=== PATIENT | male | born 1980 | race African-American/Black ===

== ENCOUNTER 2016-06-14 20:13 | Inpatient (IN) | payer MEDICARE ==
[~2016-06-14] VITALS: Ht 172.7 cm; Wt 108.0 kg
[~2016-06-14 20:13] MED LIST: ABILIFY2 MG; ABILIFY2 MG PO; ASPIRIN81 MG PO; BRILINTA90 MG PO; CELEXA20 MG PO; CLARITIN 10 MG10 MG PO; COREG12.5 MG PO; GLUCOPHAGE500 MG PO; HUMALOG 30100 UNITS/ SC; HUMALOG MIX 75/23 ML; HUMALOG MIX 75/23 ML SC; HUMULIN R100 U/ML SC; HYDRALAZINE HCL25 MG PO; IBUPROFEN800 MG PO; LEVEMIR100 U/M1; LEVEMIR100 U/M1 SC; LIPITOR20 MG PO; METOPROLOL TART50 MG PO; NORVASC10 MG PO; OXYCONTIN10 MG PO; PLAVIX75 MG PO; PRAVACHOL20 MG PO; PRINIVIL20 MG PO; PROTONIX40 MG PO; TRICOR145 MG PO; VALIUM5 MG; VALIUM5 MG PO; XANAX2 MG PO; ZESTORETIC 20/21 TAB; ZESTORETIC 20/21 TAB PO
[2016-06-14 20:48] LABS: BASOPHILS 0.1 % (0.0-2.0); EOSINOPHILS 0 % (0-7); HEMATOCRIT 45.6 % (42.0-54.0); HEMOGLOBIN 15.8 g/dL (13.5-17.5); IMMATURE GRANULOCYTES 0.4 % (0-5); LYMPHOCYTES 11.4 % (15-50); MCH 25.6 pg (26.0-34.0); MCHC 34.6 g/dL (31.0-37.0); MCV 73.8 fL (80.0-100.0); MEAN PLATELET VOLUME 9.5 fL (7.4-10.4); MONOCYTES 6.6 % (2-11); NEUTROPHILS 81.5 % (40-80); PLATELET COUNT 237 10x3/uL (130-400); RBC 6.18 10x6/uL (4.20-6.10); RDW 13.5 % (11.5-14.5); WBC 7.3 10x3/uL (4.8-10.8)
[2016-06-14 21:24] LABS: ALBUMIN 3.6 g/dL (3.4-5.0); ALKALINE PHOSPHATASE 139 U/L (46-116); ALT (SGPT) 46 U/L (10-68); CALC OSMOLALITY 276 mosm/kg (275-300); CALCIUM 8.8 mg/dL (8.5-10.1); CARBON DIOXIDE 25.6 mmol/L (21.0-32.0); CHLORIDE - SERUM 97 mmol/L (98-107); CKMB 0.5 U/L (0.0-3.6); CREATINE KINASE 383 UL (21-232); CREATININE - SERUM 1.1 mg/dL (0.6-1.3); GLUCOSE 265 mg/dL (74-106); POTASSIUM - SERUM 3.4 mmol/L (3.5-5.1); PROTEIN - SERUM 7.9 g/dL (6.4-8.2); SODIUM 135 mmol/L (136-145); TROPONIN-I < 0.017 ng/mL (0.000-0.060); UREA NITROGEN 8 mg/dL (7-18); eGFR NON AFRICAN AMERICAN 81 mL/min (90-120)
[2016-06-15] VITALS (7 sets, daily range): BP systolic 139–162; BP diastolic 85–108; Ht 172.7 cm; Wt 108.0 kg
[2016-06-15 01:34] LABS: APPEARANCE CLEAR (CLEAR); BILIRUBIN NEGATIVE (NEGATIVE); COLOR YELLOW (YELLOW); GLUCOSE 500 mg/dL (NEGATIVE); KETONE NEGATIVE (NEGATIVE); LEUKOCYTE ESTERASE NEGATIVE (NEGATIVE); NITRITE NEGATIVE (NEGATIVE); PROTEIN 1+ mg/dL (NEGATIVE); UROBILINOGEN NORMAL (NORMAL)
[2016-06-15 02:07] LABS: UDS - AMPHET NEGATIVE QUAL (NEGATIVE); UDS - BARB NEGATIVE QUAL (NEGATIVE); UDS - BENZO NEGATIVE QUAL (NEGATIVE); UDS - COCAINE NEGATIVE QUAL (NEGATIVE); UDS - METH NEGATIVE QUAL (NEGATIVE); UDS - OPIATE NEGATIVE QUAL (NEGATIVE); UDS - PCP NEGATIVE QUAL (NEGATIVE); UDS - THC NEGATIVE QUAL (NEGATIVE)
--- NOTE | 2016-06-15 03:40 | NUR ---
RECEIVED PT TO FLOOR FROM ER VIA STRETCHER. VITAL SIGNS STABLE. BP MEDS GIVEN IN ER FOR HIGH BP - BP STARTING TO COME DOWN. REVIEWED HOME MEDS AND HISTORY. ASSESSMENT COMPLETE PER FLOW-SHEET. WILL CONTINUE TO MONITOR.
[2016-06-15] MEDS ORDERED: ZANTAC150 MG PO (03:49)
--- NOTE | 2016-06-15 07:56 | NUR ---
AWAKE AND ALERT. ORIENTED X3. NO C/O AT THIS TIME. LUNGS ARE CLEAR BILATERALLY, REPORTS OCCASSIONAL DRY COUGH. SKIN IS INTACT WITHOUT REDNESS. SL TO RIGHT HAND PATENT WITHOUT REDNESS AT INSERTION SITE. DENIES NEEDS. TEMP 99.5 AT THIS TIME.
--- NOTE | 2016-06-15 10:00 | NUR ---
RESTING QUIETLY IN BED. TELEMETRY APPLIED PER ORDERS.
--- NOTE | 2016-06-15 12:00 | NUR ---
FSBS 210. GIVEN 4 UNITS REGULAR INSULIN SUBQ PER SS. LUNCH SERVED IN ROOM.
[2016-06-15 12:51] LABS: HEMOGLOBIN A1C 11.2 % (4.8-6.0)
--- NOTE | 2016-06-15 15:06 | NUR ---
REQUESTED AND GIVEN 2MG XANAX PO FOR C/O ANXIETY. WILL MONITOR.
--- NOTE | 2016-06-15 16:00 | NUR ---
UP TO SHOWER WITH SET UP ASSISTANCE ONLLY. TEMP 102 AT THIS TIME. WILL GIVE TYLENOL AFTER SHOWER.
--- NOTE | 2016-06-15 16:56 | NUR ---
Patient Name: CHRISTIANO GONGORA Admission Status: ER Admission Date: 06-15-2016 : 1980 Admission Diagnosis:OTHER CHEST PAIN Attending: KELLY Current LOS: 1 Anticipated DC Date: 06-15-2016 Planned Disposition: Home Primary Insurance: MEDICARE A & B Discharge Planning Comments: CM met with patient who states he plans to discharge home where he resides alone in a single story home with 3 steps. He states he has a Caregiver supplied by "[facility]". Patient's PCP is Dr. Velez ([place]) [phone]. His transportation home will be his friend "Wander Alvarado" ([phone]). The patient states his home environment is safe to return to. Patient may benefit from Home Health at discharge. CM to follow and assist as needed with discharge planning/needs. Training Lead: Brisa Clancy Is the patient Alert and Oriented? Yes 0 * How many steps to enter\\exit or inside your home? 3 0 * PCP Dr. Leonard () [phone] 0 * Pharmacy [facility] ([facility] [phone] 0 * Preadmission Environment Home Alone 0 * ADLs Partial Dependent 0 * Partial ADLs (Assistance needed) Bathing Medication Management 0 * Equipment CPAP Glucometer Nebulizer 0 * List name and contact numbers for known caregivers / representatives who currently or will assist patient after discharge: Wander Alvarado (friend) [phone] or [phone] or [phone] Leanna Henry (sister) [phone] 0 * Community resources currently utilized Private Duty Care 0 * Please name any agencies selected above. "[employer]" caregivers 0 * Additional services required to return to the preadmission environment? Yes 0 * Can the patient safely return to the preadmission environment? Yes 0 * Has this patient been hospitalized within the prior 30 days at any hospital? No 0 Grand Total: 0
--- NOTE | 2016-06-15 18:49 | NUR ---
FSBS 28O. GIVEN 10 UNITS REGULAR SUBQ PER SS. SUPPER SERVED IN ROOM. NOT EATING AT THIS TIME. TRAY LEFT IN ROOM. TEMP AT THIS TIME. 102.5
[2016-06-16] VITALS: BP 156/103
[2016-06-16 04:00] VITALS: BP 139/98
[2016-06-16 07:25] LABS: BASOPHILS 0.2 % (0.0-2.0); EOSINOPHILS 0 % (0-7); HEMATOCRIT 41.9 % (42.0-54.0); HEMOGLOBIN 14.1 g/dL (13.5-17.5); LYMPHOCYTES 18.9 % (15-50); MCH 24.9 pg (26.0-34.0); MCHC 33.7 g/dL (31.0-37.0); MCV 73.9 fL (80.0-100.0); MEAN PLATELET VOLUME 10.1 fL (7.4-10.4); MONOCYTES 14.1 % (2-11); NEUTROPHILS 66.8 % (40-80); RBC 5.67 10x6/uL (4.20-6.10); RDW 14.1 % (11.5-14.5)
--- NOTE | 2016-06-16 07:30 | NUR ---
RECIEVED PT DURING WALKING ROUNDS. PT RESTING IN BED WITH NO COMPLAINTS OF PAIN OR DISCOMFORT AT THIS TIME. ASSESSMENT DONE PER FLOWSHEET. BED IN LOW POSITION AND CALL LIGHT WITHIN REACH. WILL CONTINUE TO MONITOR.
[2016-06-16 07:32] LABS: PLATELET COUNT 187 10x3/uL (130-400); WBC 4.5 10x3/uL (4.8-10.8)
[2016-06-16 07:53] LABS: ALBUMIN 2.8 g/dL (3.4-5.0); ANION GAP 8.4 mmol/L (8-16); BILIRUBIN - TOTAL 1.1 mg/dL (0.2-1.3); CALCIUM 8.5 mg/dL (8.5-10.1); CARBON DIOXIDE 29.9 mmol/L (21.0-32.0); CHOL - HDL RATIO 4.3 ratio (2.3-4.9); CREATININE - SERUM 1.2 mg/dL (0.6-1.3); LDL-HDL RATIO 2.2 ratio (1.5-3.5); MAGNESIUM - SERUM 1.7 mg/dL (1.8-2.4); PHOSPHOROUS 3.5 mg/dL (2.5-4.9); POTASSIUM - SERUM 3.3 mmol/L (3.5-5.1)
[2016-06-16 09:32] VITALS: BP 152/90
--- NOTE | 2016-06-16 12:16 | NUR ---
PT STATED HE WAS HAVING AN "ANXIETY ATTACK". HE WAS RESTLESS IN THE BED BUT OTHERWISE CALM. ADMINISTERED MEDICATION PER ORDER. BED IN LOW POSITION AND CALL LIGHT WITHIN REACH. WILL CONTINUE TO MONITOR.
--- NOTE | 2016-06-16 12:46 | NUR ---
QUIET IN ROOM AT PRESENT RESP EVEN AND UNLABORED AT PRESENT DENIES ANY OTHER NEEDS AT THIS TIME.
[2016-06-16 13:46] VITALS: BP 138/86
[2016-06-16 19:18] VITALS: BP 136/70
[2016-06-16 20:00] VITALS: BP 140/88
[2016-06-17] VITALS: BP 155/105
--- NOTE | 2016-06-17 00:07 | NUR ---
PT LAYING IN BED NO DISTRESS OBSERVED CALL LIGHT IN REACH SRX2 PT AMBULATORY TO BATH ROOM FROM BED WITH NO ASSISTANCE WITH AMBULATION PT REQUEST HEP TO SIT UP AND TO ADJUST PILLOW AND BLANKETS STATING " I CANT DO IT" ASSITED PT WITH NEEDS CALL LIGHT LOW AND LOKCED SRX2 CALL LIGHT IN REACH WILL MONITOR
[2016-06-17 04:00] VITALS: BP 152/109
[2016-06-17 06:59] LABS: BASOPHILS 0.3 % (0.0-2.0); EOSINOPHILS 0 % (0-7); HEMATOCRIT 43.1 % (42.0-54.0); HEMOGLOBIN 14.6 g/dL (13.5-17.5); IMMATURE GRANULOCYTES 0.3 % (0-5); MCH 25.1 pg (26.0-34.0); MCHC 33.9 g/dL (31.0-37.0); MCV 74.2 fL (80.0-100.0); MEAN PLATELET VOLUME 9.7 fL (7.4-10.4); MONOCYTES 13.6 % (2-11); NEUTROPHILS 42.8 % (40-80); PLATELET COUNT 183 10x3/uL (130-400); RBC 5.81 10x6/uL (4.20-6.10); RDW 14.1 % (11.5-14.5); WBC 3.8 10x3/uL (4.8-10.8)
[2016-06-17 07:38] LABS: ALBUMIN 2.9 g/dL (3.4-5.0); ANION GAP 12.2 mmol/L (8-16); BILIRUBIN - TOTAL 0.77 mg/dL (0.2-1.3); CALCIUM 8.9 mg/dL (8.5-10.1); CARBON DIOXIDE 29.2 mmol/L (21.0-32.0); CREATININE - SERUM 1.2 mg/dL (0.6-1.3); MAGNESIUM - SERUM 1.9 mg/dL (1.8-2.4); POTASSIUM - SERUM 3.4 mmol/L (3.5-5.1); PROTEIN - SERUM 7.6 g/dL (6.4-8.2); THYROID STIMULATING HORMONE 1.09 uIU/mL (0.36-3.74)
[2016-06-17 07:41] LABS: PHOSPHOROUS 4.5 mg/dL (2.5-4.9)
[2016-06-17 09:00] VITALS: BP 154/95
--- NOTE | 2016-06-17 10:00 | NUR ---
PATIENT STATED HE HAS SEIZURES. SET UP SEIZURE PRECAUTIONS. NO SIGNS OF SEIZURE ACTIVITY AT THIS TIME. BED IN LOWEST POSITION, CALL LIGHT IN REACH. BED ALARM ON. ENCOURAGED PATIENT NOT TO GET UP WITHOUT ASSIST FROM STAFF. PATIENT VERBALIZED UNDERSTANDING AND DENIES QUESTIONS. APPLIED SCDS TO BILATEARL LEGS.
[2016-06-17 16:34] VITALS: BP 122/66
--- NOTE | 2016-06-17 21:57 | NUR ---
PATIENT RESTING IN BED. REPORTS FREQUENT LOOSE STOOLS. SCHEDULED MEDS GIVEN. REFUSES MIRALAX RT LOOSE STOOLS. ASSESSMENT COMPLETED. DENIES ANY NEEDS AT THIS TIME. BED LOW. CALL LIGHT IN REACH.
[2016-06-17 23:13] VITALS: BP 122/86
--- NOTE | 2016-06-18 03:00 | NUR ---
PT IN BED WITH NO DISTRESS. RESPIRATIONS EVEN AND UNLABORED. SIDE RAILS X 2. BED LOW. CALL LIGHT IN REACH.
[2016-06-18 04:00] VITALS: BP 135/94
[2016-06-18 05:35] LABS: BASOPHILS 0.6 % (0.0-2.0); EOSINOPHILS 0 % (0-7); HEMATOCRIT 44.5 % (42.0-54.0); HEMOGLOBIN 14.8 g/dL (13.5-17.5); IMMATURE GRANULOCYTES 0.3 % (0-5); LYMPHOCYTES 52.1 % (15-50); MCH 24.8 pg (26.0-34.0); MCHC 33.3 g/dL (31.0-37.0); MCV 74.7 fL (80.0-100.0); MEAN PLATELET VOLUME 10.1 fL (7.4-10.4); MONOCYTES 10.8 % (2-11); NEUTROPHILS 36.2 % (40-80); PLATELET COUNT 236 10x3/uL (130-400); RBC 5.96 10x6/uL (4.20-6.10); WBC 3.6 10x3/uL (4.8-10.8)
[2016-06-18 05:40] LABS: ALBUMIN 2.9 g/dL (3.4-5.0); ANION GAP 11.8 mmol/L (8-16); BILIRUBIN - TOTAL 0.59 mg/dL (0.2-1.3); CARBON DIOXIDE 31.5 mmol/L (21.0-32.0); CREATININE - SERUM 1.2 mg/dL (0.6-1.3); MAGNESIUM - SERUM 1.9 mg/dL (1.8-2.4); PHOSPHOROUS 5.5 mg/dL (2.5-4.9); POTASSIUM - SERUM 3.3 mmol/L (3.5-5.1); PROTEIN - SERUM 7.6 g/dL (6.4-8.2)
--- NOTE | 2016-06-18 08:26 | NUR ---
PT. AOX4 PT SITTING IN BED RESP EVEN AND NONLABORED PT. DENIES NEEDS AT THIS TIME. SKIN JHA WARM AND DRY WITH GOOD EDEMA IV TO RIGHT HAND PATENT AND INTACT. IV TO RIGHT FOREARM PATENT AND INTACT BED AT LOWEST SETTING AND CALL LIGHT WITHIN REACH
[2016-06-18 08:37] VITALS: BP 140/96
--- NOTE | 2016-06-18 10:08 | EC ---
PATIENT:CHRISTIANO GONGORA II DATE OF SERVICE: 06/15/16 SEX: M MEDICAL RECORD: [id number] DATE OF : [birth year] LOCATION:[facility] AGE OF PATIENT: 36 ADMISSION DATE: 06/15/16 REFERRING PHYSICIAN: INTERPRETING PHYSICIAN: DAFNE ALATORRE MD ECHOCARDIOGRAM REPORT ECHO CHARGES 4 ECHO COMPLETE CLINICAL DIAGNOSIS: FEVER OF UNKNOWN ORIGIN/ PALPITATIONSS ECHOCARDIOGRAPHIC MEASUREMENTS (adult normal given) AC root (d.<3.7cm) 3.2 LV Septum d (<1.2 cm> 1.4 Valve Excursion 2.4 LV Septum (systole) 2.2 Left Atria (s.<4.0cm> 4.0 LVPW d(<1.2cm) 1.3 RV (d.<2.3cm) 2.2 LVPW (sytole) 2.0 LV diastole(<5.6CM) 4.5 MV E-F(>70mm/sec) LV systole 2.7 LVOT Diameter 2.1 MV exc.(>10mm) Est.ejection fraction (50-75%) Pericardial Effusion N DOPPLER: LVIT A 95.0 E 115 LA RVSP 19.0 LVOT 116 AOP1/2T Asc. Ao 178 RVOT 82.0 RA PA 115 AV Gradient Peak 13.0 AV Mean 6.4 AV Area 2.3 MV Gradient Peak 6.7 MV Mean 2.7 MV Area COMMENTS: Spoilage Worker: Hemant BOWERSOE Warrant Server:1 Dr. Alatorre TAPE# PACS DATE OF SERVICE: 06/15/2016 Echocardiogram FINDINGS: 1. Left ventricular chamber size is within normal limits. Left ventricular systolic function is normal. Overall ejection fraction estimated at 60%. 2. Left atrium, right atrium, and right ventricular chamber sizes are within normal limits. 3. Valvular structures have normal structure and motion. ECHOCARDIOGRAM REPORT [id number] CHRISTIANO GONGORA II 4. Doppler interrogation only reveals trace mitral regurgitation. No other valvular insufficiency or stenosis. 5. No evidence of pericardial effusion or left ventricular thrombus. TRANSINT:[id number] Voice Confirmation ID: [id number] DOCUMENT ID: [id number] DAFNE ALATORRE MD at 1008 CC: [id number] DICTATION DATE: 06/15/16 1321 SHOEMAKING CUTTER: 06/15/16 1506 ADM IN [facility] [address] [place] [address]
[2016-06-18 12:12] VITALS: BP 126/86
--- NOTE | 2016-06-18 13:54 | NUR ---
CM REASSESSMENT NOTE: PATIENT STATED HE HAS LIVED ON HIS OWN SINCE 23. PATIENT HAS ITS [facility] ASSISTANCE 7 DAYS A WEEK 3 HOURS A DAY-HIS FREELANCE DISPLAYER IS MS. AVALOS. THE SERVICE PROVIDES CLEANING, COOKING, PERSONAL CARE. PATIENTS TRANSPORATION IS THE [employer] BUS OR HIS FRIENDS. PATIENT STATED HE ALSO HAS A SERVICE DOG NAMED STEFANIE. PATIENT STATED HE DID NOT NEED HOME HEALTH THAT ITS [facility] IS ALL HE NEEDED. PATIENTS FRIEND BAKARI BLAKE WILL DRIVE HIM HOME TODAY ([phone]).
[2016-06-18] MEDS ORDERED: TAMIFLU75 MG PO (14:01)
[2016-06-18] MEDS ORDERED: LEVAQUIN750 MG PO (14:01)
--- NOTE | 2016-06-18 16:50 | NUR ---
REMOVED IV FROM WITH CATHETER INTACT FROM BACK OF RIGHT HAND. IV REMOVED FROM RIGHT FOREARM WITH CATHETER INTACT PT. SHOWERED AND DISCHARGED AT THIS TIME. PT. AMBULATED OUT WITH CAREGIVER AT THIS TIME.
== END 2016-06-18 16:53 | disposition home or self-care (01) | DRG 864 ==
LOC: D.ER 20:13 → D.MS 06-15 02:01
PROVIDERS: Emergency Medicine; ADMIT Family Medicine Adult Medicine
DX: R50.9 Fever, unspecified (principal); R07.89 Other chest pain; E87.6 Hypokalemia; E83.42 Hypomagnesemia; E11.65 Type 2 diabetes mellitus with hyperglycemia; J45.909 Unspecified asthma, uncomplicated; G47.33 Obstructive sleep apnea (adult) (pediatric); I10 Essential (primary) hypertension; E78.5 Hyperlipidemia, unspecified; I25.10 Atherosclerotic heart disease of native coronary artery without angina pectoris; Z86.73 Personal history of transient ischemic attack (TIA), and cerebral infarction without residual deficits

== ENCOUNTER 2017-10-23 18:29 | Inpatient (IN) | payer MEDICARE, MEDICAID ==
[~2017-10-23] VITALS: Ht 172.7 cm; Wt 100.0 kg
--- NOTE | ~2017-10-23 | EC ---
PATIENT:CHRISTIANO GONGORA II DATE OF SERVICE: 10/23/17 SEX: M MEDICAL RECORD: [id number] DATE OF : [birth year] LOCATION:[facility] AGE OF PATIENT: 37 ADMISSION DATE: 10/25/17 REFERRING PHYSICIAN: INTERPRETING PHYSICIAN: SARY OVALLE MD ECHOCARDIOGRAM REPORT ECHO CHARGES 4 ECHO COMPLETE Date: 10/24 CLINICAL DIAGNOSIS: LEFT ARM NUMB, CAD ECHOCARDIOGRAPHIC MEASUREMENTS (adult normal given) AC root (d.<3.7cm) 3.1 cm LV Septum d (<1.2 cm> 2.2 cm Valve Excursion 1.0 cm LV Septum (systole) 2.0 cm Left Atria (s.<4.0cm> 3.0 cm LVPW d(<1.2cm) 1.4 cm RV (d.<2.3cm) 2.4 cm LVPW (sytole) 1.7 cm LV diastole(<5.6CM) 4.4 cm MV E-F(>70mm/sec) cm LV systole 3.4 cm LVOT Diameter 1.8 cm MV exc.(>10mm) cm Est.ejection fraction (50-75%) % DOPPLER: LVIT cm/sec A 53 cm/sec E 95 cm/sec LA cm/sec RVSP 14.3 mmHg LVOT 102 cm/sec AOP1/2T m/s Asc. Ao 122 cm/sec RVOT 59 cm/sec RA cm/sec PA 87 cm/sec AV Gradient Peak 6.0 mmHg AV Mean 3.16 mmHg AV Area 1.9 cm MV Gradient Peak 3.81 mmHg MV Mean 1.32 mmHg MV Area cm COMMENTS: International Account Executive: Cotton Header: Bobbi Ovalle TAPE# PACS Pericardial Effusion N DATE OF SERVICE: PROCEDURE: Transthoracic echocardiogram. FINDINGS: 1. Left ventricle has moderate to severe concentric left ventricular hypertrophy with an ejection fraction of 65%. There are no regional wall motion abnormalities. 2. The left atrium is normal. 3. The aortic valve is normal. ECHOCARDIOGRAM REPORT [id number] CHRISTIANO GONGORA II 4. The mitral valve has trace mitral regurgitation. 5. The tricuspid valve has normal structure and function. 6. The right ventricle has normal structure and function. 7. The right atrium is grossly normal. 8. The pulmonic valve is normal. CONCLUSIONS: The patient has evidence of hypertensive heart disease and with left ventricular hypertrophy, otherwise normal echocardiogram. TRANSINT:[id number] Voice Confirmation ID: [id number] DOCUMENT ID: [id number] SARY OVALLE MD at 1127 CC: [id number] DICTATION DATE: 10/25/17 1131 TUBE COATER: 10/25/17 1208 DIS IN 10/26/17 [place] [id number] [place] [id number]
[~2017-10-23 18:29] MED LIST changes: +LEVAQUIN750 MG PO; +OXYCODONE HCL10 MG PO; -OXYCONTIN10 MG PO; +TAMIFLU75 MG PO; +XANAX1 MG PO; -XANAX2 MG PO; +ZANTAC150 MG PO
[2017-10-23] MEDS ORDERED: TOPAMAX200 MG PO (18:40)
[2017-10-23] MEDS ORDERED: BUSPAR 15 MG TA15 MG PO (18:41)
[2017-10-23] MEDS ORDERED: NOVOLOG100 U/M1 SC (18:43)
[2017-10-23 19:00] VITALS: BP 150/96
[2017-10-23 19:27] LABS: BASOPHILS 0.2 % (0-2); EOSINOPHILS 0 % (0-7); HEMATOCRIT 41.1 % (42.0-54.0); IMMATURE GRANULOCYTES 0.2 % (0-5); LYMPHOCYTES 46.7 % (15-50); MCH 25.5 pg (26.0-34.0); MCHC 34.1 g/dL (31.0-37.0); MEAN PLATELET VOLUME 9.6 fL (7.4-10.4); MONOCYTES 12.3 % (2-11); NEUTROPHILS 40.6 % (40-80); PLATELET COUNT 225 10x3/uL (130-400); RBC 5.48 10x6/uL (4.20-6.10); RDW 15.4 % (11.5-14.5); WBC 4.1 10x3/uL (4.8-10.8)
[2017-10-23 19:57] LABS: ALBUMIN 3.9 g/dL (3.4-5.0); ALKALINE PHOSPHATASE 99 U/L (46-116); ALT (SGPT) 26 U/L (10-68); BILIRUBIN - TOTAL 0.35 mg/dL (0.2-1.3); CALC OSMOLALITY 287 mosm/kg (275-300); CALCIUM 8.9 mg/dL (8.5-10.1); CHLORIDE - SERUM 107 mmol/L (98-107); CREATININE - SERUM 1.2 mg/dL (0.6-1.3); GLUCOSE 122 mg/dL (74-106); POTASSIUM - SERUM 3.5 mmol/L (3.5-5.1); PROTEIN - SERUM 8.2 g/dL (6.4-8.2); SODIUM 143 mmol/L (136-145); UREA NITROGEN 18 mg/dL (7-18); eGFR NON AFRICAN AMERICAN 73 mL/min (90-120)
[2017-10-23 20:00] VITALS: BP 144/96
[2017-10-23 20:01] LABS: APPEARANCE CLEAR (CLEAR); BILIRUBIN NEGATIVE (NEGATIVE); COLOR YELLOW (YELLOW); GLUCOSE NEGATIVE (NEGATIVE); KETONE NEGATIVE (NEGATIVE); NITRITE NEGATIVE (NEGATIVE); PROTEIN NEGATIVE (NEGATIVE); SPECIFIC GRAVITY 1.015 (1.005-1.020); UROBILINOGEN NORMAL (NORMAL)
[2017-10-23 20:07] LABS: CKMB 1.3 U/L (0.0-3.6); CREATINE KINASE 179 UL (21-232); MAGNESIUM - SERUM 1.6 mg/dL (1.8-2.4)
[2017-10-23 20:08] LABS: TROPONIN-I < 0.017 ng/mL (0.000-0.060)
[2017-10-23 20:12] LABS: UDS - AMPHET NEGATIVE QUAL (NEGATIVE); UDS - BARB NEGATIVE QUAL (NEGATIVE); UDS - BENZO NEGATIVE QUAL (NEGATIVE); UDS - COCAINE NEGATIVE QUAL (NEGATIVE); UDS - OPIATE NEGATIVE QUAL (NEGATIVE); UDS - PCP NEGATIVE QUAL (NEGATIVE); UDS - THC NEGATIVE QUAL (NEGATIVE)
[2017-10-23 20:55] VITALS: BP 145/93
[2017-10-23 22:03] VITALS: BP 130/83
[2017-10-23 23:15] VITALS: BP 151/99; BMI 33.5
[2017-10-23 23:54] VITALS: BP 151/99
[2017-10-24 04:00] VITALS: BP 157/97
[2017-10-24 05:21] LABS: HEMATOCRIT 40.6 % (42.0-54.0); HEMOGLOBIN 13.7 g/dL (13.5-17.5); MCH 25.3 pg (26.0-34.0); MCHC 33.7 g/dL (31.0-37.0); MEAN PLATELET VOLUME 10.2 fL (7.4-10.4); PLATELET COUNT 228 10x3/uL (130-400); RBC 5.41 10x6/uL (4.20-6.10); RDW 15.4 % (11.5-14.5)
[2017-10-24 05:47] LABS: CALC OSMOLALITY 286 mosm/kg (275-300); CALCIUM 8.7 mg/dL (8.5-10.1); CARBON DIOXIDE 24.6 mmol/L (21.0-32.0); CHLORIDE - SERUM 107 mmol/L (98-107); CKMB 0.9 U/L (0.0-3.6); CREATINE KINASE 135 UL (21-232); CREATININE - SERUM 1.2 mg/dL (0.6-1.3); GLUCOSE 133 mg/dL (74-106); MAGNESIUM - SERUM 1.6 mg/dL (1.8-2.4); POTASSIUM - SERUM 3.4 mmol/L (3.5-5.1); SODIUM 142 mmol/L (136-145); UREA NITROGEN 17 mg/dL (7-18); eGFR NON AFRICAN AMERICAN 73 mL/min (90-120)
[2017-10-24 06:03] LABS: TROPONIN-I < 0.017 ng/mL (0.000-0.060)
[2017-10-24 06:17] LABS: LYMPHOCYTES 47 % (15-50); MONOCYTES 10 % (2-11); NEUTROPHILS 41 % (40-80); PLATELET ESTIMATE NORMAL
[2017-10-24 08:11] VITALS: BP 150/106
[2017-10-24 09:16] LABS: CREATINE KINASE 134 UL (21-232)
[2017-10-24 09:19] LABS: TROPONIN-I < 0.017 ng/mL (0.000-0.060)
[2017-10-24 12:46] VITALS: Ht 172.7 cm; Wt 100.0 kg
[2017-10-24 15:25] VITALS: BP 132/93
[2017-10-24] MEDS ORDERED: BROVANA15 MCG/2 M INH (19:59)
[2017-10-24 20:00] VITALS: BP 149/94
[2017-10-24] MEDS ORDERED: IPRAT-ALBUT 0.5-3 ML UPD (20:00)
[2017-10-24] MEDS ORDERED: KLONOPIN1 MG PO (23:00)
[2017-10-24] MEDS ORDERED: OXYCODONE HCL E20 MG PO (23:01)
[2017-10-24] MEDS ORDERED: NITROQUICK0.4 MG SL (23:10)
[2017-10-25] VITALS: BP 148/96
[2017-10-25 04:00] VITALS: BP 140/98
[2017-10-25 05:10] LABS: BASOPHILS 0.6 % (0-2); EOSINOPHILS 0 % (0-7); HEMATOCRIT 42.3 % (42.0-54.0); HEMOGLOBIN 14.2 g/dL (13.5-17.5); LYMPHOCYTES 60.6 % (15-50); MCH 25.1 pg (26.0-34.0); MCHC 33.6 g/dL (31.0-37.0); MCV 74.9 fL (80.0-100.0); MEAN PLATELET VOLUME 9.7 fL (7.4-10.4); MONOCYTES 12.1 % (2-11); NEUTROPHILS 26.7 % (40-80); PLATELET COUNT 210 10x3/uL (130-400); RBC 5.65 10x6/uL (4.20-6.10); RDW 15.3 % (11.5-14.5); WBC 3.3 10x3/uL (4.8-10.8)
[2017-10-25 05:26] LABS: CALC OSMOLALITY 281 mosm/kg (275-300); CALCIUM 8.1 mg/dL (8.5-10.1); CARBON DIOXIDE 25.9 mmol/L (21.0-32.0); CHLORIDE - SERUM 106 mmol/L (98-107); CREATININE - SERUM 1.1 mg/dL (0.6-1.3); GLUCOSE 109 mg/dL (74-106); MAGNESIUM - SERUM 1.9 mg/dL (1.8-2.4); POTASSIUM - SERUM 3.5 mmol/L (3.5-5.1); SODIUM 141 mmol/L (136-145); eGFR NON AFRICAN AMERICAN 81 mL/min (90-120)
[2017-10-25 05:27] LABS: UREA NITROGEN 12 mg/dL (7-18)
[2017-10-25 09:35] VITALS: BP 156/110
[2017-10-25 16:07] VITALS: BP 139/88
[2017-10-25 19:40] VITALS: BP 136/89
[2017-10-25 23:21] VITALS: BP 121/82
[2017-10-26 03:57] VITALS: BP 127/80
[2017-10-26 06:14] LABS: HEMATOCRIT 44.1 % (42.0-54.0); HEMOGLOBIN 14.8 g/dL (13.5-17.5); MCH 25.1 pg (26.0-34.0); MCHC 33.6 g/dL (31.0-37.0); MCV 74.7 fL (80.0-100.0); MEAN PLATELET VOLUME 9.9 fL (7.4-10.4); PLATELET COUNT 231 10x3/uL (130-400); RDW 15.3 % (11.5-14.5)
[2017-10-26 06:30] LABS: ANION GAP 9.7 mmol/L (8-16); CALCIUM 8.8 mg/dL (8.5-10.1); CARBON DIOXIDE 31.2 mmol/L (21.0-32.0); CREATININE - SERUM 1.2 mg/dL (0.6-1.3); POTASSIUM - SERUM 3.9 mmol/L (3.5-5.1)
[2017-10-26 07:19] LABS: LYMPHOCYTES 62 % (15-50); MICROCYTOSIS OCC; MONOCYTES 12 % (2-11); NEUTROPHILS 24 % (40-80); PLATELET ESTIMATE NORMAL
[2017-10-26 08:28] VITALS: BP 130/86
[2017-10-26 12:36] VITALS: BP 139/86
== END 2017-10-26 17:29 | disposition home or self-care (01) | DRG 69 ==
LOC: D.ER 18:29 → OBSVTIME 20:55 → D.EDHOLD 20:55 → D.MS 20:55
PROVIDERS: Family Medicine; Internal Medicine Nephrology
DX: G45.9 Transient cerebral ischemic attack, unspecified (principal); I16.0 Hypertensive urgency; I65.23 Occlusion and stenosis of bilateral carotid arteries; I25.119 Atherosclerotic heart disease of native coronary artery with unspecified angina pectoris; E83.42 Hypomagnesemia; G47.33 Obstructive sleep apnea (adult) (pediatric); F32.9 Major depressive disorder, single episode, unspecified; F41.9 Anxiety disorder, unspecified; R20.0 Anesthesia of skin; E78.5 Hyperlipidemia, unspecified; E11.9 Type 2 diabetes mellitus without complications

== ENCOUNTER 2018-02-12 22:15 | Emergency (ER) | payer MEDICARE, MEDICAID ==
[~2018-02-12] VITALS: Ht 172.7 cm; Wt 102.3 kg
[~2018-02-12 22:15] MED LIST changes: +BROVANA15 MCG/2 M INH; +BUSPAR 15 MG TA15 MG PO; +IPRAT-ALBUT 0.5-3 ML UPD; +KLONOPIN1 MG PO; +NITROQUICK0.4 MG SL; +NOVOLOG100 U/M1 SC; +OXYCODONE HCL E20 MG PO; +TOPAMAX200 MG PO
[2018-02-12 22:20] VITALS: Ht 172.7 cm; Wt 102.3 kg
[2018-02-12] MEDS ORDERED: METOPROLOL TART25 MG PO (22:22)
[2018-02-13 00:59] VITALS: BP 146/97
== END 2018-02-13 01:00 | disposition home or self-care (01) ==
LOC: D.ER 22:15
DX: T40.7X5A Adverse effect of cannabis (derivatives), initial encounter (principal); Y92.89 Other specified places as the place of occurrence of the external cause; I10 Essential (primary) hypertension; R68.2 Dry mouth, unspecified; G40.909 Epilepsy, unspecified, not intractable, without status epilepticus; E11.9 Type 2 diabetes mellitus without complications

== ENCOUNTER 2018-02-24 19:42 | Emergency (ER) | payer MEDICARE, MEDICAID ==
[~2018-02-24] VITALS: Ht 172.7 cm; Wt 104.5 kg
[~2018-02-24 19:42] MED LIST changes: +METOPROLOL TART25 MG PO
[2018-02-24 19:43] VITALS: Ht 172.7 cm; Wt 104.5 kg
[2018-02-24] MEDS ORDERED: ZOLOFT50 MG PO (19:53)
[2018-02-24 20:12] LABS: BASOPHILS 0.3 % (0-2); EOSINOPHILS 0 % (0-7); HEMATOCRIT 41.1 % (42.0-54.0); HEMOGLOBIN 14.1 g/dL (13.5-17.5); LYMPHOCYTES 43.6 % (15-50); MCH 25.8 pg (26.0-34.0); MCHC 34.3 g/dL (31.0-37.0); MCV 75.1 fL (80.0-100.0); MEAN PLATELET VOLUME 9.7 fL (7.4-10.4); MONOCYTES 10.2 % (2-11); NEUTROPHILS 45.9 % (40-80); PLATELET COUNT 204 10x3/uL (130-400); RBC 5.47 10x6/uL (4.20-6.10); RDW 14.8 % (11.5-14.5); WBC 3.7 10x3/uL (4.8-10.8)
[2018-02-24 20:26] LABS: ALBUMIN 3.7 g/dL (3.4-5.0); ANION GAP 12.5 mmol/L (8-16); BILIRUBIN - TOTAL 0.43 mg/dL (0.2-1.3); CALCIUM 8.3 mg/dL (8.5-10.1); CARBON DIOXIDE 25.9 mmol/L (21.0-32.0); CREATININE - SERUM 1.4 mg/dL (0.6-1.3); POTASSIUM - SERUM 3.4 mmol/L (3.5-5.1); PROTEIN - SERUM 7.6 g/dL (6.4-8.2)
[2018-02-24 21:24] LABS: APPEARANCE CLEAR (CLEAR); BILIRUBIN NEGATIVE (NEGATIVE); COLOR YELLOW (YELLOW); GLUCOSE 100 mg/dL (NEGATIVE); KETONE NEGATIVE (NEGATIVE); NITRITE NEGATIVE (NEGATIVE); PROTEIN NEGATIVE (NEGATIVE); UROBILINOGEN NORMAL (NORMAL)
[2018-02-24 21:34] LABS: UDS - AMPHET NEGATIVE QUAL (NEGATIVE); UDS - BARB NEGATIVE QUAL (NEGATIVE); UDS - BENZO NEGATIVE QUAL (NEGATIVE); UDS - COCAINE NEGATIVE QUAL (NEGATIVE); UDS - OPIATE NEGATIVE QUAL (NEGATIVE); UDS - PCP NEGATIVE QUAL (NEGATIVE); UDS - THC NEGATIVE QUAL (NEGATIVE)
[2018-02-24] MEDS ORDERED: LEVAQUIN750 MG PO (22:30)
[2018-02-25 00:16] VITALS: BP 146/88
== END 2018-02-25 00:16 | disposition home or self-care (01) ==
LOC: D.ER 19:42
PROVIDERS: Family Medicine
DX: J18.9 Pneumonia, unspecified organism (principal); M54.5 Low back pain; G40.909 Epilepsy, unspecified, not intractable, without status epilepticus; Z87.820 Personal history of traumatic brain injury; E11.9 Type 2 diabetes mellitus without complications; I10 Essential (primary) hypertension

== ENCOUNTER 2018-09-16 19:05 | Emergency (ER) | payer MEDICARE, MEDICAID ==
[~2018-09-16 19:05] MED LIST changes: +ZOLOFT50 MG PO
[2018-09-16 19:09] VITALS: BMI 35.9
[2018-09-16 19:43] LABS: BASOPHILS 0.3 % (0-2); EOSINOPHILS 0 % (0-7); HEMATOCRIT 43.5 % (42.0-54.0); HEMOGLOBIN 15.1 g/dL (13.5-17.5); IMMATURE GRANULOCYTES 0.2 % (0-5); LYMPHOCYTES 38.3 % (15-50); MCH 25.8 pg (26.0-34.0); MCHC 34.7 g/dL (31.0-37.0); MCV 74.4 fL (80.0-100.0); MEAN PLATELET VOLUME 10.3 fL (7.4-10.4); MONOCYTES 9.3 % (2-11); NEUTROPHILS 51.9 % (40-80); PLATELET COUNT 219 10x3/uL (130-400); RBC 5.85 10x6/uL (4.20-6.10); RDW 13.9 % (11.5-14.5); WBC 6.6 10x3/uL (4.8-10.8)
[2018-09-16 19:52] LABS: APTT 32.2 SECONDS (22.8-39.4); INR 1.08 (0.85-1.17); PROTIME 13.5 SECONDS (11.6-15.0)
[2018-09-16 20:10] LABS: ALBUMIN 3.7 g/dL (3.4-5.0); ALKALINE PHOSPHATASE 178 U/L (46-116); ALT (SGPT) 54 U/L (10-68); BILIRUBIN - TOTAL 0.55 mg/dL (0.2-1.3); CALCIUM 8.5 mg/dL (8.5-10.1); CARBON DIOXIDE 24.1 mmol/L (21.0-32.0); CHLORIDE - SERUM 97 mmol/L (98-107); CKMB 1.4 U/L (0.0-3.6); CREATINE KINASE 299 UL (21-232); CREATININE - SERUM 1.4 mg/dL (0.6-1.3); MAGNESIUM - SERUM 1.7 mg/dL (1.8-2.4); POTASSIUM - SERUM 3.7 mmol/L (3.5-5.1); PROTEIN - SERUM 8.1 g/dL (6.4-8.2); SODIUM 133 mmol/L (136-145); UREA NITROGEN 10 mg/dL (7-18); eGFR NON AFRICAN AMERICAN 61 mL/min (90-120)
[2018-09-16 20:13] LABS: CALC OSMOLALITY 286 mosm/kg (275-300); TROPONIN-I < 0.017 ng/mL (0.000-0.060)
[2018-09-16 20:16] LABS: GLUCOSE 496 mg/dL (74-106)
[2018-09-17 00:57] VITALS: BP 144/67
== END 2018-09-16 23:05 | disposition home or self-care (01) ==
LOC: D.ER 19:05
PROVIDERS: Family Medicine
DX: E11.65 Type 2 diabetes mellitus with hyperglycemia (principal); Z79.4 Long term (current) use of insulin; I10 Essential (primary) hypertension; R53.1 Weakness

== ENCOUNTER → 2018-09-17 08:31 | Outpatient (CLI) | payer MEDICARE, MEDICAID ==
[2018-09-16 19:09] VITALS: BMI 35.9
--- NOTE | 2018-09-19 09:40 | ST ---
PATIENT:CHRISTIANO GONGORA II MEDICAL RECORD: [id number] SEX: M LOCATION:[facility] ORDER #: ADMISSION DATE: 09/17/18 AGE OF PATIENT: 38 REFERRING PHYSICIAN: INTERPRETING PHYSICIAN: DAFNE APPIAH MD DATE OF SERVICE: 09/17/2018 PROCEDURE: Nuclear stress test. INDICATIONS: Angina, coronary artery disease, shortness of breath, dyspnea on exertion, hypertension, and hyperlipidemia. He was exercised on standard Lexiscan protocol with 31 mCi of sestamibi injected at peak stress, 11 mCi were used previously for rest images. FINDINGS: Gated SPECT reveals preserved ejection fraction at 54% with good wall motion and thickening and brightening throughout all segments. SPECT imaging Cardiolite was used as myocardial perfusion agent. There is homogeneous uptake throughout all segments at rest and stress with no evidence of inducible ischemia or previous infarction. OVERALL IMPRESSION: 1. This is a normal nuclear stress test with no evidence of inducible ischemia or previous infarction. 2. Gated SPECT reveals a preserved ejection fraction at 54%. In this patient with ongoing symptomatology, the current scan does not suggest the presence of hemodynamically significant coronary artery disease. Evaluate noncardiac etiology of chest pain. TRANSINT:[id number] Voice Confirmation ID: [id number] DOCUMENT ID: [id number] DAFNE APPIAH MD at 0940 CC: [id number] DICTATION DATE: 09/17/18 1612 PACKAGE LINE RELIEF OPERATOR: 09/18/18 1014 DEP CLI 09/17/18 [place] [id number] [place] [address]
== END | disposition home or self-care (01) ==
LOC: D.HCCARDIO 08:31
PROVIDERS: ATTEND Internal Medicine Interventional Cardiology
DX: I25.119 Atherosclerotic heart disease of native coronary artery with unspecified angina pectoris (principal)

== ENCOUNTER 2018-12-23 12:23 | Emergency (ER) | payer MEDICARE, MEDICAID ==
[~2018-12-23] VITALS: Ht 172.7 cm; Wt 104.5 kg
[2018-12-23 12:26] VITALS: Ht 172.7 cm; Wt 104.5 kg
[2018-12-23 14:22] LABS: BASOPHILS 0.4 % (0-2); EOSINOPHILS 0 % (0-7); HEMATOCRIT 42.7 % (42.0-54.0); HEMOGLOBIN 14.6 g/dL (13.5-17.5); IMMATURE GRANULOCYTES 0.2 % (0-5); LYMPHOCYTES 44.2 % (15-50); MCH 25.4 pg (26.0-34.0); MCHC 34.2 g/dL (31.0-37.0); MCV 74.4 fL (80.0-100.0); MEAN PLATELET VOLUME 10.1 fL (7.4-10.4); MONOCYTES 6.9 % (2-11); NEUTROPHILS 48.3 % (40-80); PLATELET COUNT 254 10x3/uL (130-400); RBC 5.74 10x6/uL (4.20-6.10); WBC 5.4 10x3/uL (4.8-10.8)
[2018-12-23 14:25] LABS: ALBUMIN 3.6 g/dL (3.4-5.0); ANION GAP 12.3 mmol/L (8-16); BILIRUBIN - TOTAL 0.29 mg/dL (0.2-1.3); CALCIUM 8.7 mg/dL (8.5-10.1); CARBON DIOXIDE 28.3 mmol/L (21.0-32.0); CREATININE - SERUM 1.5 mg/dL (0.6-1.3); POTASSIUM - SERUM 3.6 mmol/L (3.5-5.1); PROTEIN - SERUM 7.8 g/dL (6.4-8.2)
[2018-12-23 15:01] VITALS: BP 149/98
== END 2018-12-23 15:02 | disposition home or self-care (01) ==
LOC: D.ER 12:23
PROVIDERS: Family Medicine
DX: R41.3 Other amnesia (principal); E11.9 Type 2 diabetes mellitus without complications; I10 Essential (primary) hypertension; K21.9 Gastro-esophageal reflux disease without esophagitis; S09.90XA Unspecified injury of head, initial encounter

== ENCOUNTER → 2019-06-18 09:29 | Outpatient (CLI) | payer MEDICARE, MEDICAID ==
[2019-05-15 08:51] VITALS: BMI 35.2
== END | disposition home or self-care (01) ==
LOC: D.CT 06-15 09:30
PROVIDERS: ATTEND Internal Medicine Interventional Cardiology
DX: I65.29 Occlusion and stenosis of unspecified carotid artery (principal); R20.2 Paresthesia of skin

== ENCOUNTER 2019-08-28 21:45 | Observation (INO) | payer MEDICARE, MEDICAID ==
[~2019-08-28] VITALS: Ht 175.3 cm; Wt 107.8 kg
[2019-08-28 22:03] LABS: BASOPHILS 0.5 % (0-2); EOSINOPHILS 0 % (0-7); HEMOGLOBIN 14.5 g/dL (13.5-17.5); IMMATURE GRANULOCYTES 0.3 % (0-5); LYMPHOCYTES 48.8 % (15-50); MCH 25.2 pg (26.0-34.0); MCV 76.4 fL (80.0-100.0); MEAN PLATELET VOLUME 9.8 fL (7.4-10.4); MONOCYTES 9.2 % (2-11); NEUTROPHILS 41.2 % (40-80); PLATELET COUNT 251 10x3/uL (130-400); RBC 5.76 10x6/uL (4.20-6.10); RDW 15.3 % (11.5-14.5); WBC 6.5 10x3/uL (4.8-10.8)
[2019-08-28 22:11] LABS: APTT 30.6 SECONDS (22.8-39.4); CALC OSMOLALITY 275 mosm/kg (275-300); CALCIUM 8.8 mg/dL (8.5-10.1); CARBON DIOXIDE 25.3 mmol/L (21.0-32.0); CHLORIDE - SERUM 99 mmol/L (98-107); CREATININE - SERUM 1.2 mg/dL (0.6-1.3); INR 0.96 (0.85-1.17); POTASSIUM - SERUM 3.1 mmol/L (3.5-5.1); PROTIME 12.7 SECONDS (11.6-15.0); SODIUM 133 mmol/L (136-145); UREA NITROGEN 18 mg/dL (7-18); eGFR NON AFRICAN AMERICAN 72 mL/min (90-120)
[2019-08-28 22:12] LABS: GLUCOSE 246 mg/dL (74-106)
[2019-08-28 22:28] LABS: ALBUMIN 3.9 g/dL (3.4-5.0); ALKALINE PHOSPHATASE 149 U/L (30-120); ALT (SGPT) 45 U/L (10-68); BILIRUBIN - TOTAL 0.35 mg/dL (0.2-1.3); CKMB 1.2 U/L (0.0-3.6); CREATINE KINASE 258 UL (21-232); MAGNESIUM - SERUM 1.5 mg/dL (1.8-2.4); PROTEIN - SERUM 8.3 g/dL (6.4-8.2); TROPONIN-I < 0.017 ng/mL (0.000-0.060)
[2019-08-28 23:00] VITALS: BP 138/88
--- NOTE | 2019-08-28 23:55 | NUR ---
ATTEMPTED TO CALL REPORT, [facility] STATES NURSE NOT AVAILABLE TO TAKE PT AT THIS TIME.
[2019-08-29 03:44] LABS: HEMATOCRIT 43.7 % (42.0-54.0); HEMOGLOBIN 14.2 g/dL (13.5-17.5); LYMPHOCYTES 47.7 % (15-50); MCH 24.9 pg (26.0-34.0); MCHC 32.5 g/dL (31.0-37.0); MCV 76.7 fL (80.0-100.0); MEAN PLATELET VOLUME 10.1 fL (7.4-10.4); NEUTROPHILS 43.5 % (40-80); PLATELET COUNT 264 10x3/uL (130-400); RDW 15.6 % (11.5-14.5); WBC 6.2 10x3/uL (4.8-10.8)
[2019-08-29 03:56] LABS: ALBUMIN 3.5 g/dL (3.4-5.0); ALKALINE PHOSPHATASE 172 U/L (30-120); ALT (SGPT) 49 U/L (10-68); BILIRUBIN - TOTAL 0.51 mg/dL (0.2-1.3); CALC OSMOLALITY 280 mosm/kg (275-300); CALCIUM 7.9 mg/dL (8.5-10.1); CARBON DIOXIDE 26.4 mmol/L (21.0-32.0); CHLORIDE - SERUM 101 mmol/L (98-107); CREATINE KINASE 228 UL (21-232); CREATININE - SERUM 1.3 mg/dL (0.6-1.3); GLUCOSE 265 mg/dL (74-106); POTASSIUM - SERUM 3.4 mmol/L (3.5-5.1); SODIUM 135 mmol/L (136-145); UREA NITROGEN 19 mg/dL (7-18); eGFR NON AFRICAN AMERICAN 66 mL/min (90-120)
--- NOTE | 2019-08-29 03:56 | NUR ---
PATIENT LAYING IN BED IN LOW FOWLERS EYES CLOSED BUT EASILY AROUSED. PATIENT STATES NO NEEDS AT THIS TIME. NO PAIN AT THIS TIME. CALL LIGHT WITHIN REACH AND BED IN LOWEST LOCKED POSITION.
[2019-08-29 03:58] LABS: PROTEIN - SERUM 7.6 g/dL (6.4-8.2); TROPONIN-I < 0.017 ng/mL (0.000-0.060)
[2019-08-29 04:45] VITALS: BP 144/86; BMI 35.2
--- NOTE | 2019-08-29 04:58 | NUR ---
PATIENT UNABLE TO DISCUSS MEDICATIONS. STATED HE DOSE NOT KNOW ALL OF THEM BY NAME. ASKS IF WE CAN CALL PHARM IN THE AM TO FIGURE IT OUT
[2019-08-29 05:17] VITALS: BP 143/93
[2019-08-29 09:49] VITALS: BP 124/97
--- NOTE | 2019-08-29 10:06 | NUR ---
PT C/O OF CHEST PAIN. ONE NITRO GIVEN AT THIS TIME. WILL REASSESS PT AGAIN IN 3MIN. PT DENIES ANY OTHER NEEDS AT THIS TIME. MONITOR SHOWING SR WITH RATE OF 68. LT AC INFUSING NS AT 75CC/HR. CALL LIT IN REACH, BEDSIDE RAILS X2, NAD NOTED, WILL CONTINUE TO MONITOR.
[2019-08-29 10:16] LABS: CKMB 0.9 U/L (0.0-3.6); CREATINE KINASE 184 UL (21-232); TROPONIN-I < 0.017 ng/mL (0.000-0.060)
--- NOTE | 2019-08-29 11:15 | NUR ---
BLOOD SUGAR OF 163, NO COVERAGE GIVEN DUE TO PT BEING NPO.
[2019-08-29 11:48] VITALS: Ht 175.3 cm; Wt 107.8 kg
[2019-08-29 13:50] VITALS: BP 147/96
--- NOTE | 2019-08-29 14:27 | NUR ---
MEDS GIVEN ORDERED ALSO INFORMED PT OF NEED FOR URINE SAMPLE. PT DENIES ANY NEEDS AT THIS TIME. CALL LIGHT IN REACH, NAD NOTED, WILL CONTINUE TO MONITOR.
[2019-08-29 15:16] LABS: BILIRUBIN NEGATIVE (NEGATIVE); GLUCOSE 250 mg/dL (NEGATIVE); KETONE NEGATIVE (NEGATIVE); NITRITE NEGATIVE (NEGATIVE); SPECIFIC GRAVITY 1.015 (1.005-1.020); UROBILINOGEN NORMAL (NORMAL)
[2019-08-29 15:24] LABS: UDS - AMPHET NEGATIVE QUAL (NEGATIVE); UDS - BARB NEGATIVE QUAL (NEGATIVE); UDS - BENZO NEGATIVE QUAL (NEGATIVE); UDS - COCAINE NEGATIVE QUAL (NEGATIVE); UDS - OPIATE NEGATIVE QUAL (NEGATIVE); UDS - PCP NEGATIVE QUAL (NEGATIVE); UDS - THC NEGATIVE QUAL (NEGATIVE)
[2019-08-29 16:27] LABS: CREATINE KINASE 171 UL (21-232)
[2019-08-29 16:28] LABS: TROPONIN-I < 0.017 ng/mL (0.000-0.060)
--- NOTE | 2019-08-29 16:47 | NUR ---
BLOOD SUGAR OF 315, 8UNITS GIVEN PER S/S.
--- NOTE | 2019-08-29 17:01 | NUR ---
PROVIDED VERBAL AND WRITTEN DISCHARGE TEACHING TO PT, WHO VERBALIZED UNDERSTANDING REGARING TEACHING. D/C LT FA IV WITH CATHETER TIP INTACT. HEART MONITOR REMOVED AND TAKEN TO STOVE INSTALLER. PT IS TRYING TO GET A RIDE AND WILL LET NURSE OR CHILDCARE DIRECTOR KNOW WHEN HE HAS A RIDE AND IS READY FOR WHEELCHAIR.
--- NOTE | 2019-08-29 17:58 | NUR ---
WHEELED PT TO ER ENTRANCE WITH ALL BELONGINGS, NAD NOTED.
--- NOTE | 2019-08-30 09:56 | EC ---
PATIENT:CHRISTIANO GONGORA II DATE OF SERVICE: 08/28/19 SEX: M MEDICAL RECORD: [id number] DATE OF : [birth year] LOCATION:[facility]. [facility] AGE OF PATIENT: 39 ADMISSION DATE: 08/28/19 REFERRING PHYSICIAN: INTERPRETING PHYSICIAN: SARY OVALLE MD ECHOCARDIOGRAM REPORT ECHO CHARGES 4 ECHO COMPLETE Date: 08/29/19 CLINICAL DIAGNOSIS: CHEST PAIN HX CAD/STENT ECHOCARDIOGRAPHIC MEASUREMENTS (adult normal given) AC root (d.<3.7cm) 3.3 cm LV Septum d (<1.2 cm> 1.6 cm Valve Excursion 1.6 cm LV Septum (systole) 1.7 cm Left Atria (s.<4.0cm> 3.9 cm LVPW d(<1.2cm) 1.4 cm RV (d.<2.3cm) 3.8 cm LVPW (sytole) 1.7 cm LV diastole(<5.6CM) 4.0 cm MV E-F(>70mm/sec) cm LV systole 2.8 cm LVOT Diameter 1.7 cm MV exc.(>10mm) 1.7 cm Est.ejection fraction (50-75%) % DOPPLER: LVIT cm/sec A 55.0 cm/sec E 79.0 cm/sec LA cm/sec RVSP 22 mmHg LVOT 75 cm/sec AOP1/2T m/s Asc. Ao 87 cm/sec RVOT 83 cm/sec RA cm/sec PA 106 cm/sec AV Gradient Peak 3.03 mmHg AV Mean 1.45 mmHg AV Area 2.4 cm MV Gradient Peak 2.93 mmHg MV Mean 1.13 mmHg MV Area cm COMMENTS: Rn Field Case Manager: 2 DESTINY CATES Psychiatric Cns: 4 Dr. Ovalle TAPE# PACS Pericardial Effusion N DATE OF SERVICE: PROCEDURE: Transthoracic echocardiogram. FINDINGS: The left ventricle shows severe concentric left ventricular hypertrophy with ejection fraction of 55% to 60%. Left atrium is normal size, shape, and function. Aortic valve is normal. ECHOCARDIOGRAM REPORT [id number] CHRISTIANO GONGORA II Mitral valve is normal structure and function. Tricuspid valve is normal structure and function. Pericardium is normal. The right ventricle is mildly dilated. The right atrium is mildly dilated. Pulmonic valve is normal. IMPRESSION: The patient has evidence of significant hypertensive heart disease with left ventricular hypertrophy. There is no regional wall motion abnormalities on exam. The ejection fraction is preserved. TRANSINT:[id number] Voice Confirmation ID: [id number] DOCUMENT ID: [id number] SARY OVALLE MD at 0956 CC: [id number] DICTATION DATE: 08/29/19 1252 BOILER HOUSE OPERATOR: 08/29/19 1522 DIS IN 08/29/19 [place] [id number] [place] [id number]
--- NOTE | 2019-08-31 09:10 | ST ---
PATIENT:CHRISTIANO GONGORA II MEDICAL RECORD: [id number] SEX: M LOCATION:[address] ORDER #: ADMISSION DATE: 08/28/19 AGE OF PATIENT: 39 REFERRING PHYSICIAN: INTERPRETING PHYSICIAN: SARY OVALLE MD DATE OF SERVICE: 08/29/2019 PROCEDURE: Standard Lexiscan directed stress test without difficulty. PROCEDURE IN DETAIL: The patient underwent a standard Lexiscan directed nuclear stress test without consequence or sequelae. The patient had Lexiscan injected and rest imaging and stress imaging were obtained. Gated imaging showed ejection fraction approximately 50% without wall motion abnormalities. SPECT imaging showed no evidence of ischemia or infarction. IMPRESSION: The patient had no evidence of ischemia or infarction. This is a normal stress test with normal LV systolic function. RECOMMENDATIONS: Continue aggressive secondary risk factor modification and symptom directed therapy. TRANSINT:[id number] Voice Confirmation ID: [id number] DOCUMENT ID: [id number] SARY OVALLE MD at 0910 CC: [id number] DICTATION DATE: 08/31/19 0811 BED MAKER: 08/31/19 0901 DIS IN 08/29/19 [place] [id number] [place] [address]
== END 2019-08-29 18:01 | disposition home or self-care (01) ==
LOC: D.ER 21:45 → OBSVTIME 22:35 → D.M2 22:35
PROVIDERS: Family Medicine; ADMIT Internal Medicine Nephrology; ATTEND Internal Medicine Nephrology
DX: I25.110 Atherosclerotic heart disease of native coronary artery with unstable angina pectoris (principal); N17.9 Acute kidney failure, unspecified; E87.6 Hypokalemia; E83.42 Hypomagnesemia; I10 Essential (primary) hypertension; E78.5 Hyperlipidemia, unspecified; E11.9 Type 2 diabetes mellitus without complications; G47.33 Obstructive sleep apnea (adult) (pediatric); F41.8 Other specified anxiety disorders; K21.9 Gastro-esophageal reflux disease without esophagitis